=== PATIENT | male | born 1940 | race Caucasian/White ===

== ENCOUNTER → 2021-10-07 09:12 | Outpatient (CLI) | payer MEDICARE, SELFPAY ==
--- NOTE | ~2021-10-07 | CT_ITS ---
EXAMINATION: CT brain wo/w con DATE: 10/07/2021 09:50 INDICATION: Headache, dizziness. Memory impairment. History of stroke in 2013. TECHNIQUE: Computed tomography (CT) of the head was performed without and subsequently with 100 CC Om nipaque 350 intravenous contrast. The mA was adjusted according to patient size. Iterative reconstruc tion technique was employed. Exam dose: 1199.14 mGy-cm total exam DLP. COMPARISON: None FINDINGS: There is encephalomalacia in the right temporal and parietal area consistent with old cereb rovascular accident involving right middle cerebral artery territory.. There is a small old left cerebellar infarct. There is bilateral carotid siphon and supraclinoid internal carotid artery calcification.. There is n onspecific diminished attenuation of the cerebral white matter, likely due to chronic small vessel is chemic changes.. No intracranial mass lesion or hemorrhage, midline shift or mass effect. No subdural or epidural armaan renee is detected. There is central and cortical cerebral and mild cerebellar volume loss. The included paranasal sinuses and mastoid air cells are well aerated. No fracture or bone destruction of the cranial vault. 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 Reviewed, dictated and finalized at location A. BI DEVELOPER IMPRESSION: Old right middle cerebral artery territory infarcts and temporal a nd parietal areas Small old left cerebellar hemispheric infarct Cerebral atherosclerosis and chronic small vessel ischemic changes of the cereb ral white matter Cerebral and cerebellar atrophy
[2021-10-07 09:32] LABS: Estimated Glomerular Filt Rate > 60
== END ==
PROVIDERS: Visit Provider Internal Medicine
DX: R41.3 Other amnesia (principal); Z86.73 Personal history of transient ischemic attack (TIA), and cerebral infarction without residual deficits; I67.2 Cerebral atherosclerosis; G31.89 Other specified degenerative diseases of nervous system
CPT/HCPCS: 70470; Q9967

== ENCOUNTER 2023-06-13 16:45 | Inpatient (IN) | payer MEDICARE, SELFPAY ==
[2023-06-13] VITALS (35 sets, daily range): BP systolic 124–175; BP diastolic 88–99; PULSE 84–100; RESP 16–22; TEMP 36.4; O2SAT 90–100
--- NOTE | ~2023-06-13 | CT_ITS ---
EXAMINATION: CT brain wo con DATE: 06/15/2023 19:52 INDICATION: Head injury. TECHNIQUE: Computed tomography (CT) of the head was performed without intravenous contrast. The mA wa s adjusted according to patient size. Iterative reconstruction technique was employed. The dose-lengt h product was 832.33 mGy-cm. COMPARISON: Head CT 06/14/2023 FINDINGS: There is an old infarct in left frontal lobe. There is an old infarct in the left basal stephen glia. There is an old infarct involving right frontotemporal parietal region and right insula. There are scattered areas of low attenuation in the cerebral white matter. There is no intracranial hemorrh age, acute infarction, or abnormal intracranial mass lesion. The ventricles are normal in size. The o rbits are normal. The mastoid air cells are normal. There is frontal scalp soft tissue swelling. IMPRESSION: 1. Old infarcts in the brain. 2. Stable moderate nonspecific cerebral white matter disease, which likely represents chronic small v essel ischemic disease. Reviewed, dictated and finalized at location E. ER STAMPING MACHINE OPERATOR IMPRESSION: 1. Old infarcts in the brain. 2. Stable moderate nonspecific cerebral white matter disease, which likely repr esents chronic small vessel ischemic disease.
--- NOTE | ~2023-06-13 | XR_ITS ---
EXAMINATION: XR chest 2V Exam Date/Time: 06/13/2023 17:25 CENTER MANAGER HISTORY: Shortness of breath X 2 DAYS Comparison: None. RESULT: Lines, tubes, and devices: Fractured sternotomy wires, the most superior of which is also displaced. Lungs and pleura: Patchy bilateral groundglass opacities. Indistinct vessels. Streaky bibasilar opac ities. Mild bilateral costophrenic angle blunting. Cardiomediastinal silhouette: Stable. Other: No acute osseous or upper abdominal finding. IMPRESSION: Pulmonary opacities most consistent with moderate pulmonary edema and small bilateral effusions. Infe ction is not excluded. Fractured and displaced sternotomy wire which can be a source of chronic anterior chest pain. Reviewed, dictated and finalized at location [facility]. ER MANAGER IMPRESSION: Pulmonary opacities most consistent with moderate pulmonary edema and small tony ateral effusions. Infection is not excluded. Fractured and displaced sternotomy wire which can be a source of chronic anteri or chest pain.
--- NOTE | ~2023-06-13 | XR_ITS ---
MODIFIED ESOPHAGRAM HISTORY: Dysphagia. TECHNIQUE: Modified barium esophagram was performed on 06/16/2023. I administered fluoroscopy and per formed the exam with speech pathologist. Patient was seated for lateral fluoroscopic imaging for ing estion of thin liquids, pudding, solids and quantified amounts, followed by thin liquids in uncontrol led amounts. This was recorded on tape. A single fluoroscopic spot image was also recorded. The DAP f or this procedure was 2.372 Gycm2. The amount of fluoroscopy time used during this procedure was 3.3 minutes. FINDINGS: Oral stage: Reduced lingual control resulting in premature spillage into the pharynx prior to initiat ion of the swallow. Pharyngeal stage: Reduced laryngeal elevation and tongue base retraction. There is significant vallec ular and piriform sinus residue. There is laryngeal penetration and trace silent aspiration after the swallow. Cervical/esophageal stage: Adequate function. IMPRESSION: Laryngeal penetration and trace silent aspiration following the swallow. Please correlate with speech pathologist findings and specific feeding recommendations. Reviewed, dictated and finalized at location A. R FIELD SERVICE TECHNICIAN IMPRESSION: Laryngeal penetration and trace silent aspiration following the swa llow. Please correlate with speech pathologist findings and specific feeding re commendations.
--- NOTE | ~2023-06-13 | CT_ITS ---
EXAMINATION: CT facial & cervical spine wo DATE: 06/15/2023 19:53 INDICATION: Head injury. Neck pain. TECHNIQUE: Computed tomography (CT) of the maxillofacial region and cervical spine was performed with out intravenous contrast. Automated exposure control and iterative reconstruction technique were empl oyed. The dose-length product was 520.07 mGy-cm. COMPARISON: None FINDINGS: MAXILLOFACIAL CT: There is frontal scalp soft tissue swelling. The orbits are normal. There is rightward deviation of t he nasal septum. No fracture. The mastoid air cells are normal. CERVICAL SPINE CT: There are bilateral pleural effusions. The lungs demonstrate septal thickening and groundglass opacit ies, likely pulmonary edema. C1 ring is ununited posteriorly, a normal variant. There is 2 mm retroli sthesis of C4 on C5. There is 8 degrees levocurvature of cervical spine. Vertebral body heights are n ormal. There is mildly decreased disc height at C3-C4, severely decreased disc height at C4-C5 and C5 -C6, and mildly decreased disc height at C6-C7. The following disc levels are specifically discussed: C2-C3: There is mild right uncovertebral joint osteoarthritis. There is severe right and mild left fa cet joint osteoarthritis. There is mild right neural foraminal stenosis. There is no central canal st enosis. C3-C4: There is mild right uncovertebral joint osteoarthritis. There is ankylosis of left uncovertebr al joint with moderate hypertrophy. There is mild right facet joint osteoarthritis. There is ankylosi s of left facet joint with severe hypertrophy. There is moderate left neural foraminal stenosis. Ther e is mild central canal stenosis. C4-C5: There is severe bilateral uncovertebral joint osteoarthritis. There is severe bilateral facet joint osteoarthritis. There is moderate right and mild left neural foraminal stenosis. There is mild central canal stenosis. C5-C6: There is severe bilateral uncovertebral joint osteoarthritis. There is moderate bilateral face t joint osteoarthritis. There is mild bilateral neural foraminal stenosis. There is mild central rene l stenosis. C6-C7: There is mild bilateral uncovertebral joint osteoarthritis. There is mild bilateral facet join t osteoarthritis. There is mild left neural foraminal stenosis. There is mild central canal stenosis. C7-T1: There is no uncovertebral joint osteoarthritis. There is moderate right and mild left facet verónica int osteoarthritis. There is no neural foraminal stenosis. There is no central canal stenosis. IMPRESSION: 1. No fracture. 2. Severe cervical spondylosis. 3. Pulmonary edema and moderate-sized pleural effusions. Reviewed, dictated and finalized at location E. BLADE TRUER
--- NOTE | ~2023-06-13 | CT_ITS ---
EXAMINATION: CT brain wo con DATE: 06/14/2023 17:25 INDICATION: Facial weakness. TECHNIQUE: Computed tomography (CT) of the head was performed without intravenous contrast. The mA wa s adjusted according to patient size. Iterative reconstruction technique was employed. The dose-lengt h product was 605.33 mGy-cm. COMPARISON: Head CT 10/07/2021 FINDINGS: There are small old infarcts in the cerebellum bilaterally. There are scattered areas of lo w attenuation in the cerebral white matter. There is an old infarct in the left frontal lobe. There i s an old infarct in the left basal ganglia. There is a large old infarct involving the right frontal, parietal, and temporal lobes and right insula. There is an old infarct in the right temporal lobe. T here is no intracranial hemorrhage, acute infarction, or abnormal intracranial mass lesion. There is vacuo dilatation of trigone and temporal horn right lateral ventricle. There is mild mucosal thickeni ng in the paranasal sinuses. The orbits are normal. The mastoid air cells are normal. IMPRESSION: 1. Old infarcts in the brain. 2. Stable extensive nonspecific cerebral white matter disease, which likely represents chronic small vessel ischemic disease. Reviewed, dictated and finalized at location E. LAW EXAMINER IMPRESSION: 1. Old infarcts in the brain. 2. Stable extensive nonspecific cerebral white matter disease, which likely rep resents chronic small vessel ischemic disease.
--- NOTE | ~2023-06-13 | XR_ITS ---
EXAMINATION: XR ribs LT 2V INDICATION: Left chest pain TECHNIQUE: 3 views of the left ribs were obtained. COMPARISON: 06/14/2023 FINDINGS: There is a possible nondisplaced anterolateral fracture of the left seventh rib. There is a mild diffuse interstitial pattern of the lungs without significant change. Cardiomegaly is noted. Co ntrast from earlier modified barium swallow is seen in the stomach. No pleural effusion or pneumothor ax identified. Severe lumbar spondylosis is noted. IMPRESSION: 1. Possible nondisplaced anterolateral fracture of the left seventh rib. Reviewed, dictated and finalized at location B. CATION MANAGER
--- NOTE | ~2023-06-13 | XR_ITS ---
EXAMINATION: XR chest 1V portable INDICATION: Shortness of breath TECHNIQUE: Portable AP chest at 1347 hours COMPARISON: 06/13/2023 FINDINGS: A mild diffuse interstitial pattern persists without significant change. No pleural effusio ns, stable. There is no pneumothorax. Cardiomegaly is noted. Median sternotomy wires are consistent w ith prior cardiac surgery. Calcified left hilar and aortic pulmonary window lymph nodes are consisten t with old granulomatous disease. IMPRESSION: 1. Cardiomegaly with stable mild/moderate pulmonary edema. Reviewed, dictated and finalized at location B. KERING MACHINE OPERATOR
--- NOTE | ~2023-06-13 | XR_ITS ---
EXAMINATION: XR hip BI 2V w AP pelvis DATE: 06/15/2023 19:58 INDICATION: Bilateral hip pain. Fall. TECHNIQUE: An anteroposterior view of the pelvis and 2 views of each hip were obtained. COMPARISON: None. FINDINGS: There is lumbar levoscoliosis and severe spondylosis. No fracture. There is mild osteoarthr itis of the hips. IMPRESSION: 1. Mild osteoarthritis of the hips. Reviewed, dictated and finalized at location E. IC HEALTH SERVICE OFFICER
--- NOTE | 2023-06-13 16:46 | ECG_ITS ---
Measurements Intervals [place] Rate: 80 P: ID: 0 QRS: -24 QRSD: 178 T: 146 QT: 427 QTc: 496 Interpretive Statements ATRIAL FIBRILLATION LEFT BUNDLE BRANCH BLOCK BASELINE ARTIFACT- I, V1, V4 ABNORMAL ECG NO PREVIOUS ECG AVAILABLE FOR COMPARISON Electronically Signed On 06-13-2023 20:06:26 GEOTHERMAL HEAT PUMP MACHINIST by Matthieu Cunningham D.O.
--- NOTE | 2023-06-13 17:11 | PC.NURSE ---
Pts son received call from [facility] reporting pt has elevated BNP. RN spoke with nurse inquiring about EKG. [facility] unable to fax EKD, verbally reported new left bundle branch block compared to EKG on file at [facility] from 01/08/23. Dr. Walker informed
--- NOTE | 2023-06-13 17:13 | ED.SOB ---
HPI - SOB/Dyspnea General Chief Complaint: Shortness of Breath/Dyspnea Stated Complaint: Shortness of breath Time Seen by Provider: 06/13/23 17:13 Source: patient and old records reviewed Mode of arrival: ambulatory Limitations: no limitations History of Present Illness HPI Narrative: Patient is an 82-year-old male, with PMH of AFIB on Eliquis, CAD, who presents to the ED with report of shortness of breath. Son at bedside assisted in providing information. Patient has history of Alzheimer disease and is a resident of [facility]. Alert and oriented x1 at baseline. Son reports patient has been visibly short of breath over the last 1-2 days. He has become very winded with walking around. Son has also noticed a cough and mild BLE edema over the last 1 month. Patient does report occasional sputum production with cough. Patient denies chest pain. Denies known fevers. Patient is typically seen at [facility]. Son reports patient was treated for pneumonia 4 to 5 months ago. Patient was seen in [facility] ED today and had a EKG performed in triage. [facility] contacted ED here and advised LBBB is new from records in January of this year. Related Data Allergies Allergy/AdvReac Type Severity Reaction Status Date / Time codeine AdvReac Mild CONSTIPATIO Unverified 08/15/12 13:58 N Review of Systems Review of Systems: CONSTITUTIONAL: Denies fever, chills, or sweats. ENT: Denies rhinorrhea, congestion, sore throat. CARDIOVASCULAR: See HPI. RESPIRATORY: See HPI. GASTROINTESTINAL: Denies abdominal pain, nausea, vomiting. MUSCULOSKELETAL: Denies back pain, joint pain, or myalgia. NEUROLOGIC: Denies headache, numbness, or weakness. All systems reviewed & are unremarkable except as noted in HPI and below Exam Narrative: GENERAL: Elderly, somewhat frail, non-toxic, in no acute distress. HEAD: Normocephalic, atraumatic. NECK: Supple. No adenopathy, no masses. RESPIRATORY: Airway patent, respirations nonlabored but borderline tachypneic. Mild rhonchi noted in bases bilaterally. No wheezing. CARDIOVASCULAR: Regular rate with irregular rhythm without murmurs, rubs, or gallops. Peripheral pulses 2+ and equal bilaterally. ABDOMINAL: Soft, nontender, nondistended, no hepatosplenomegaly. Normoactive BS. MUSCULOSKELETAL: Moves all extremities. Strength/ROM intact without gross deformities. Trace nonpitting pedal edema to lower extremities bilaterally. SKIN: Warm, dry, normal color. No rashes. NEURO: Alert, answers most questions. Speech clear. Cranial nerves II-XII grossly intact. No ataxic movements. PSYCHIATRIC: Appropriate mood and affect. Normal interaction. Course Vital Signs Vital signs: Vital Signs Temperature 97.5 F L 06/13/23 16:48 Pulse Rate 93 06/13/23 16:48 Respiratory Rate 20 06/13/23 16:48 Blood Pressure 152/99 H 06/13/23 16:48 Pulse Oximetry 98 06/13/23 16:48 Oxygen Delivery Room Air 06/13/23 16:48 Temperature 97.5 F L 06/13/23 16:48 Pulse Rate 89 06/13/23 23:46 Respiratory Rate 19 06/13/23 23:45 Blood Pressure 156/94 H 06/13/23 23:31 Pulse Oximetry 94 06/13/23 23:46 Oxygen Delivery Room Air 06/13/23 16:48 MDM - SOB/Dyspnea MDM Narrative Medical decision making narrative: Patient presented to ED with 1 to 2-day history of increased shortness of breath. Patient with history of dementia though son reports shortness of breath has been noticeable over the last 2 days. Patient found to have new LBBB today via [facility]. EKG here confirms LBBB, nonspecific ST changes, A-fib. No records to compare to here. Patient does have history of A-fib, chronically anticoagulated on Eliquis. Denying CP at this time. Vitals stable upon arrival. Oxygen 92 to 98% on room air. Patient has not required oxygen in the past. Basic laboratory studies unremarkable. No leukocytosis. Stable kidney function. Influenza/COVID negative. Chest x-ray showing moderate pulmonary edema and small bilateral pleural eff
[2023-06-13 17:23] LABS: Basophils Absolute Auto 0.1 K/mm3 (0.0-0.1); Basophils Percent Auto 0.6 % (0.2-1.2); Eosinophils Absolute Auto 0.2 K/mm3 (0-0.3); Eosinophils Percent Auto 1.9 % (0-4.4); Hematocrit 37.2 % (42.0-52.0); Immature Granulocyte Absolute 0.02 K/mm3 (0.00-0.031); Immature Granulocyte Percent A 0.3 % (0-0.5); Lymphocytes Absolute Auto 1.74 K/mm3 (0.9-3.2); Lymphocytes Percent Auto 21.9 % (18.3-44.2); Mean Corpuscular HGB Conc 32.3 g/dl (32-36); Mean Corpuscular Hemoglobin 30.5 pg (26-34); Mean Corpuscular Volume 94.4 fl (80-100); Mean Platelet Volume 9.6 fl (7.4-10.4); Monocytes Absolute Auto 0.7 K/mm3 (0.1-0.6); Monocytes Percent Auto 9.1 % (2.6-8.5); Neutrophils Absolute Auto 5.3 K/mm3 (1.3-6.7); Neutrophils Percent Auto 66.2 % (45.5-73.1); Platelet Count Result 282 k/mm3 (150-375); Red Blood Count 3.94 M/mm3 (4.6-6.20); Red Cell Distribution Width 14.2 % (11.5-14.5); White Blood Count 7.9 K/mm3 (4.5-10.0)
[2023-06-13 17:27] LABS: Alanine Aminotransferase 17 U/L (6-50); Albumin Level 2.6 g/dL (3.5-5.1); Alkaline Phosphatase 66 U/L (38-126); Anion Gap 1 mmol/L (8-16); Aspartate Amino Transferase 28 U/L (17-59); Bilirubin,Total 0.7 mg/dL (0.2-1.3); Blood Urea Nitrogen 23 mg/dL (9-20); Calcium 7.6 mg/dL (8.4-10.2); Carbon Dioxide 27 mmol/L (22-30); Chloride 105 mmol/L (98-107); Estimated CRCL calculation 47 ml/min; Estimated Glomerular Filt Rate > 60; Glucose 131 mg/dL (65-110); Potassium 3.6 mmol/L (3.4-5.0); Sodium 133 mmol/L (137-145)
[2023-06-13 18:06] LABS: Influenza A QL RT-PCR Negative (Negative); Influenza B QL RT-PCR Negative (Negative); SARS-CoV-2 RNA PCR Negative (Negative)
[2023-06-13 19:33] LABS: NT Pro B Type Natriuretic Pept 9000 pg/mL (19.9-100); Troponin I 0.042 ng/mL (0.000-0.034)
[2023-06-13] MEDS: FUROSEMIDE INJ 40 MG/4 ML VIAL IV PUSH (19:46)
--- NOTE | 2023-06-13 19:53 | PM.IMHP ---
H&P: HPI History of Present Illness Date/Time: 06/13/23 19:53 Chief Complaint: SOB Narrative: This is an 82-year-old male with past medical history significant for Alzheimer's disease [facility], was brought to the emergency room for evaluation due to shortness of breath noted in the last few days or so which has been worsening. Patient also noted to have a wet cough, history has been obtained from son who is at bedside. Preliminary workup was significant for chest x-ray with infiltrates. A brain at appetite was 9000. Patient has been admitted for further evaluation management and treatment. EXAMINATION:? XR chest 2V Exam Date/Time:? 06/13/2023 17:25 MINE ENGINEERING MANAGER HISTORY: Shortness of breath X 2 DAYS ? Comparison:? None. RESULT: Lines, tubes, and devices:? Fractured sternotomy wires, the most superior of which is also displaced. Lungs and pleura:? Patchy bilateral groundglass opacities. Indistinct vessels. Streaky bibasilar opacities. Mild bilateral costophrenic angle blunting. Cardiomediastinal silhouette:? Stable. Other:? No acute osseous or upper abdominal finding. ? IMPRESSION: Pulmonary opacities most consistent with moderate pulmonary edema and small bilateral effusions. Infection is not excluded. Fractured and displaced sternotomy wire which can be a source of chronic anterior chest pain. Review of Systems Review of Systems: ROS unobtainable: Yes unobtainable due to mental status (ALZHEIMER'S DEMENTIA) [facility] Social History Social History Smoking status: Never smoker Spiritual care concerns: No Meds Home Medications and Allergies Home Medications Medication Instructions Recorded Confirmed Type apixaban 2.5 mg tablet (Eliquis) 2.5 mg PO BID 06/14/23 06/14/23 History atorvastatin 40 mg tablet 40 mg PO DAILY 06/14/23 06/14/23 History donepezil 5 mg tablet 5 mg PO DAILY 06/14/23 06/14/23 History metoprolol tartrate 25 mg tablet 25 mg PO DAILY 06/14/23 06/14/23 History Allergies Allergy/AdvReac Type Severity Reaction Status Date / Time codeine AdvReac Mild CONSTIPATIO Verified 06/14/23 02:04 N Vital Signs Vital Signs - 24 hr 06/13/23 16:48 Temperature 97.5 F L Pulse Rate 93 Respiratory Rate 20 Blood Pressure 152/99 H Pulse Oximetry 98 Oxygen Delivery Room Air Exam Narrative: LAYING IN STRETCHER Const: General: comfortable, no acute distress, well developed, alert, awake, ill appearing and average body habitus Nutritional Appearance: average body habitus Orientation/consciousness: oriented to person HENMT: Head: normal to inspection, normocephalic and atraumatic Ears: hearing grossly normal bilaterally Face/Nose/Sinus: normal facial exam Face and sinus: normal facial exam Eyes: General: appearance normal, both eyes and all related structures Pupils: Equal, round and reactive pupils present EOM: EOMs intact bilaterally Neck: Neck: full ROM, no lymphadenopathy and no JVD Thyroid: thyroid normal Lymphatic: no lymphadenopathy noted Resp: Effort & Inspection: normal respiratory effort and able to speak in complete sentences Auscultation: clear to auscultation bilaterally, crackles and rales Cardio: Jugular venous distension: no JVD Rate: regular rate Rhythm: regular rhythm Heart sounds: S1 normal heart sound present and S2 normal heart sound present GI: GI Palp: Yes Soft to palpation and Yes No hepatosplenomegaly present : General: Yes deferred Skin: Rashes: no rashes Wounds: no wounds Neuro: General: patient oriented x3 and CN's II-XI intact bilaterally Cranial nerves: Yes CN's II-XII intact bilaterally and Yes Equal, round and reactive pupils present Cognition (Neuro): normal cognition Speech: normal speech Gait exam (Neuro): Normal gait present Motor exam (neuro): 5/5 motor strength present throughout Extrem: General: normal to inspection,
[2023-06-13 20:31] LABS: Troponin I 0.042 ng/mL (0.000-0.034)
[2023-06-13] MEDS: LORazepam INJ (*CRX) 2 MG/ML VIAL 0.5 MG IV PUSH (23:22)
[2023-06-13 23:57] LABS: Troponin I 0.041 ng/mL (0.000-0.034)
[2023-06-14] VITALS (26 sets, daily range): BP systolic 135–170; BP diastolic 60–108; PULSE 76–105; RESP 16–20; TEMP 35.9–36.4; O2SAT 92–98; BMI 22.4
--- NOTE | 2023-06-14 00:55 | ADMGEN ---
0045 This patient, Danny Villela, was admitted to IMU Room 206-02. Patient/family oriented to hospital policies and general routines including ID bracelet, bed and alarms, visiting hours, pain management, procedures, bathroom and other care routines, personal items, smoking policy, room service/diet, and visiting hours. Information on how to activate the Rapid Response Team has been discussed. Patient/Family are encouraged to report perceived risks to care and to ask questions if they do not understand what they are told or what they should do.
[2023-06-14] MEDS: IPRATROPIUM BR 0.02% INH SOLN 0.5 MG/2.5 ML VIAL INHALATION ×5 (02:05→21:17)
[2023-06-14] MEDS: ALBUTEROL SULFATE NEB 2.5 MG/3 ML INH INHALATION ×5 (02:06→21:24)
[2023-06-14] MEDS: METOPROLOL TARTRATE 25 MG TABLET PO ×2 (02:20→12:43)
[2023-06-14] MEDS: HALOPERIDOL LACTATE 5 MG/ML VIAL IM (02:20)
[2023-06-14] MEDS: diphenhydrAMINE HCl INJ 50 MG/ML VIAL 25 MG IV PUSH ×2 (03:42→22:40)
[2023-06-14] MEDS: LORazepam INJ (*CRX) 2 MG/ML VIAL 1 MG IV PUSH (03:43)
[2023-06-14] MEDS: AZITHROMYCIN 500 MG/NS 250 ML 500 MG/250 ML BAG 250 MG IVPB (03:58)
[2023-06-14] MEDS: cefTRIAXone 2 GM/NS 100 ML 2 GM/100 ML BAG IVPB (04:50)
--- NOTE | 2023-06-14 05:35 | PCRCNOTE ---
Patient is exerting himself trying to get out of bed. updraft treatments are not helping much.
--- NOTE | 2023-06-14 06:00 | ECHO_ITS ---
Patient Info Name: Danny Villela Age: 82 years : 1940 Gender: Male Ht: 64 in Wt: 141 lbs BSA: 1.71 m2 HR: 94 bpm BP: 153 / 89 mmHg Heart Rhythm: Left Bundle Branch Block Technical Quality: Good Exam Date: 06/14/2023 2:14 PM Exam Location: Echo Lab Patient Status: Outpatient Admit Date: 06/13/2023 Staff Ordering Physician: Maura Vidal PA-C Roller Engraver: Nathalie Jessica RDCS Attending Provider: Nichole Ceja MD Referring Physician: Young CORDOVA; Exam Type: CA echo doppler color flow Study Info Indications - new onset CHF, elev BNP/trop Complete two-dimensional, color flow and Doppler transthoracic echocardiogram is performed. Summary 1. Complete two-dimensional, color flow and Doppler transthoracic echocardiogram is performed. 2. Left ventricular chamber dimension is normal. 3. Left ventricular systolic function is mildly reduced, estimated at 40-45%. 4. There is moderately increased left ventricular wall thickness. 5. Left ventricular septal wall motion is abnormal with septal motion related to bundle branch block. 6. Right ventricular systolic function is reduced. 7. Left atrial chamber dimension is moderately enlarged. 8. Right atrial chamber dimension is mildly enlarged. 9. There is moderate-severe aortic valve calcification. 10. There is moderate to severe aortic valve stenosis with a peak velocity of 261 cm/s, mean gradient of 17 mmHg, and aortic valve area of 0.8 cm2. 11. There is mild aortic valve regurgitation. 12. There is moderate mitral valve regurgitation. 13. There is mild tricuspid valve regurgitation. 14. There is mild pulmonic regurgitation. 15. Left pleural effusion noted. Left Ventricle Left ventricular chamber dimension is normal. Left ventricular systolic function is mildly reduced, estimated at 40-45%. There is moderately increased left ventricular wall thickness. Left ventricular septal wall motion is abnormal with septal motion related to bundle branch block. The left ventricular diastolic function is indeterminate. Right Ventricle Right ventricular chamber dimension is normal. Right ventricular systolic function is reduced. Left Atria Left atrial chamber dimension is moderately enlarged. Right Atria Right atrial chamber dimension is mildly enlarged. Atrial Septum Intact interatrial septum visualized by color flow imaging. Aortic Valve The aortic valve is probable trileaflet. There is moderate to severe aortic valve stenosis with a peak velocity of 261 cm/s, mean gradient of 17 mmHg, and aortic valve area of 0.8 cm2. There is mild aortic valve regurgitation. There is moderate-severe aortic valve calcification. Pulmonic Valve The pulmonic valve is not well visualized. There is mild pulmonic regurgitation. Mitral Valve There is moderate mitral valve regurgitation. The mitral valve annulus is mildly calcified. Tricuspid Valve There is mild tricuspid valve regurgitation. Pericardium/Pleural Left pleural effusion noted. There is no pericardial effusion. Inferior Vena Cava Normal inferior vena cava with <50% collapse upon inspiration consistent with elevated right atrial pressure, 8 mmHg. Aorta The aortic root size at the sinus of Valsalva is normal. Left Ventricular Outflow Tract Name Value Normal LVOT 2D LVOT Diameter
[2023-06-14 08:59] LABS: Basophils Percent Auto 0.4 % (0.2-1.2); Hematocrit 37.9 % (42.0-52.0); Immature Granulocyte Absolute 0.03 K/mm3 (0.00-0.031); Immature Granulocyte Percent A 0.4 % (0-0.5); Mean Corpuscular HGB Conc 31.7 g/dl (32-36); Mean Corpuscular Hemoglobin 30.2 pg (26-34); Mean Corpuscular Volume 95.5 fl (80-100); Mean Platelet Volume 9.9 fl (7.4-10.4); Monocytes Absolute Auto 0.5 K/mm3 (0.1-0.6); Monocytes Percent Auto 6.6 % (2.6-8.5); Neutrophils Absolute Auto 6.6 K/mm3 (1.3-6.7); Neutrophils Percent Auto 82.6 % (45.5-73.1); Platelet Count Result 280 k/mm3 (150-375); Red Blood Count 3.97 M/mm3 (4.6-6.20); Red Cell Distribution Width 14.3 % (11.5-14.5)
[2023-06-14 09:09] LABS: Albumin Level 2.4 g/dL (3.5-5.1); Anion Gap 4 mmol/L (8-16); Blood Urea Nitrogen 24 mg/dL (9-20); Calcium 7.7 mg/dL (8.4-10.2); Carbon Dioxide 23 mmol/L (22-30); Chloride 106 mmol/L (98-107); Estimated CRCL calculation 51 ml/min; Estimated Glomerular Filt Rate > 60; Glucose 100 mg/dL (65-110); Phosphorus 3.3 mg/dL (2.5-4.5); Potassium 3.6 mmol/L (3.4-5.0); Sodium 133 mmol/L (137-145)
[2023-06-14] MEDS: FUROSEMIDE INJ 40 MG/4 ML VIAL IV PUSH ×2 (09:23→20:57)
[2023-06-14 11:40] LABS: Alveolar/Arterial O2 Gradient 50.4 mmHg; Base Excess ABG 1.4 mEq/l (+/-2.0); Fractional Inspired Oxygen 21 %; HCO3 ABG 23.4 mEq/l (22.0-26.0); Oxygen Content ABG 16.9 %vol (16.0-22.0); Oxygen Saturation ABG 94.7 % (95.0-100.0); Oxyhemoglobin 92.5 % THb (90.0-100.0); PCO2 ABG 29.3 mmHg (35.0-45.0); PO2 ABG 64.2 mmHg (80.0-100.0); PO2 FiO2 Ratio Arterial Blood 3.06 %
[2023-06-14 11:42] LABS: Modified Allen's Test Pass; Site Drawn RIGHT RADIAL
[2023-06-14] MEDS: ATORVASTATIN 40 MG TABLET PO (12:43)
[2023-06-14] MEDS: APIXABAN 2.5 MG TABLET PO ×2 (12:44→20:57)
--- NOTE | 2023-06-14 13:53 | PM.IMPN ---
Progress Note: A&P Assessment and Plan (1) Congestive heart failure: Qualifiers: Heart failure chronicity: acute Heart failure type: unspecified Qualified Code(s): I50.9 - Heart failure, unspecified Code(s): I50.9 - Heart failure, unspecified Status: Acute Assessment and Plan: Patient presents with SOB and found to have BNP of 9000 and CXR pulmonary edema. He was started on IV Lasix with negative fluid balance. Family state the pedal edema is much better. Echo pending but could be valvular disease CXR still showing pulmonary edema so continue IV Lasix. Monitor UOP, renal function and electrolytes. (2) Pneumonia: Code(s): J18.9 - Pneumonia, unspecified organism Status: Acute Assessment and Plan: Possible PNA by CXR. Patient was started on Rocephin and Zithromax ST to evaluate. ABG showing 7. on RA. Probably hyperventilating but RR okay. Doubt PE since on anticoagulation Cultures in progress (3) Elevated troponin: Code(s): R79.89 - Other specified abnormal findings of blood chemistry Status: Acute Assessment and Plan: Troponins x3 is minimally elevated but flat. Echo ordered Continue to monitor (4) LBBB (left bundle branch block): Code(s): I44.7 - Left bundle-branch block, unspecified Status: Acute Assessment and Plan: Noted but unclear if new or old. (5) Dementia: Code(s): F03.90 - Unspecified dementia, unspecified severity, without behavioral disturbance, psychotic disturbance, mood disturbance, and anxiety Status: Acute Assessment and Plan: Patient with dementia. Aricept contnued. Confused last night treated with Haldol, Benadry and Ativan. Very sleepy today but improved. Will follow (6) Atrial fibrillation: Code(s): I48.91 - Unspecified atrial fibrillation Status: Acute Assessment and Plan: Patient with chronic AFib with controlled rate. Continue Lopressor. Continue Eliquis. Plan DVT Prophylaxis - Eliquis Code status - Full Subjective Date/time seen: 06/14/23 13:53 Interval history: 82yo male with dementia, AFib and CHF here for shortness of breath. Assuming care. Chart reviewed. Patient was agitated last night and received Bendryl, Haldol and Ativan overnight. Patient is awake, slightly drowsy but confused so hx unreliable. Family in the room and they were updated. Patient normally walks unassisted Review of Systems Review of Systems: ROS unobtainable: Yes unobtainable due to mental status Exam Narrative: AF 96.8 170/108 85 18 98% ra Gen - NARD lying semi-recumbent in bed Chest - few bibasilar crackles, nml RR CV - irregularly irregular with 2/6 murmur t/o the recordium Tele showing AFib and BBB Abd - Soft, NT/ND, Positive BS - Friend secured draining clear yellow urine Ext - trace pedal edema Neuro - drowsy but awake; confused. follows commands Psych - Nml mood and affect Skin - Warm and dry Objective Data Vital Signs Vital Signs: Vital Signs - 24 hr 06/13/23 16:48 06/13/23 19:04 06/13/23 19:15 Temperature 97.5 F L Pulse Rate 93 84 85 Respiratory Rate 20 16 Blood Pressure 152/99 H Pulse Oximetry 98 97 100 Oxygen Delivery Room Air 06/13/23 19:16 06/13/23 19:30 06/13/23 19:37 Temperature Pulse Rate 85 98 85 Respiratory Rate 17 Blood Pressure 165/98 H 124/88 Pulse Oximetry 99 98 98 Oxygen Delivery 06/13/23 19:45 06/13/23 19:46 06/13/23 20:00 Temperature Pulse Rate 88 88 84 Respiratory Rate 19 Blood Pressure Pulse Oximetry 97 97 94 Oxygen Delivery 06/13/23 20:01 06/13/23 20:15 06/13/23 20:17 Temperature Pulse Rate 89 86 87 Respiratory Rate Blood Pressure 175/94 H Pulse Oximetry 99 92 97 Oxygen Delivery 06/13/23 20:18 06/13/23 20:30 06/13/23 20:32 Temperature Pulse Rate 88 95 Respiratory Rate 21 H 20 Blood Pressure 173/91 H P
--- NOTE | 2023-06-14 16:18 | PC.NURSE ---
On 06/14/23, the student, Orlando VALADEZ [facility], provided care and completed [facility] documentation on this patient. I have reviewed the student's documentation and agree with the findings.
--- NOTE | 2023-06-14 16:21 | PC.NURSE ---
Pt is c/o SOB with wheezing SPO2 is 96% on RA son is at bed side and reported that pt has rt side facial dropping noted that is new for him upon assessment rt side of face had a slight drop, pt reporter anchor are weak and equal, BL pedal pulses are strong and equal this nurse notified Dr Art of this concern and he will place orders for CT and PRN nub tx.
[2023-06-14] MEDS: ALBUTEROL SULFATE NEB 2.5 MG/3 ML INH 1.25 MG INHALATION (16:35)
[2023-06-14] MEDS: ALBUTEROL SULFATE NEB 2.5 MG/3 ML INH (16:52)
[2023-06-14] MEDS: OLANZapine 10 MG INJ VIAL IM (22:40)
[2023-06-14] MEDS: WATER, STERILE FOR INJECTION 10 ML VIAL XX (22:41)
[2023-06-15] VITALS (25 sets, daily range): BP systolic 122–185; BP diastolic 66–97; PULSE 60–109; RESP 16–20; TEMP 35.3–36.6; O2SAT 91–98
[2023-06-15] MEDS: LORazepam INJ (*CRX) 2 MG/ML VIAL 1 MG IV PUSH (01:07)
[2023-06-15] MEDS: cefTRIAXone 2 GM/NS 100 ML 2 GM/100 ML BAG IVPB (04:25)
[2023-06-15] MEDS: AZITHROMYCIN 500 MG/NS 250 ML 500 MG/250 ML BAG 250 MG IVPB (04:25)
[2023-06-15 04:44] LABS: Basophils Percent Auto 0.4 % (0.2-1.2); Eosinophils Absolute Auto 0.1 K/mm3 (0-0.3); Eosinophils Percent Auto 1.3 % (0-4.4); Hematocrit 35.4 % (42.0-52.0); Hemoglobin 11.5 g/dL (14.0-18.0); Immature Granulocyte Absolute 0.03 K/mm3 (0.00-0.031); Immature Granulocyte Percent A 0.4 % (0-0.5); Lymphocytes Absolute Auto 1.33 K/mm3 (0.9-3.2); Lymphocytes Percent Auto 16.2 % (18.3-44.2); Mean Corpuscular HGB Conc 32.5 g/dl (32-36); Mean Corpuscular Hemoglobin 30.3 pg (26-34); Mean Corpuscular Volume 93.4 fl (80-100); Mean Platelet Volume 9.7 fl (7.4-10.4); Monocytes Absolute Auto 0.8 K/mm3 (0.1-0.6); Monocytes Percent Auto 10.1 % (2.6-8.5); Neutrophils Absolute Auto 5.9 K/mm3 (1.3-6.7); Neutrophils Percent Auto 71.6 % (45.5-73.1); Platelet Count Result 257 k/mm3 (150-375); Red Blood Count 3.79 M/mm3 (4.6-6.20); Red Cell Distribution Width 14.2 % (11.5-14.5); White Blood Count 8.2 K/mm3 (4.5-10.0)
[2023-06-15 04:59] LABS: Albumin Level 2.6 g/dL (3.5-5.1); Anion Gap 7 mmol/L (8-16); Blood Urea Nitrogen 21 mg/dL (9-20); Calcium 7.3 mg/dL (8.4-10.2); Carbon Dioxide 27 mmol/L (22-30); Chloride 102 mmol/L (98-107); Estimated CRCL calculation 44 ml/min; Estimated Glomerular Filt Rate > 60; Glucose 90 mg/dL (65-110); Magnesium 2.2 mg/dL (1.6-2.3); Phosphorus 3.2 mg/dL (2.5-4.5); Sodium 136 mmol/L (137-145)
[2023-06-15] MEDS: ALBUTEROL SULFATE NEB 2.5 MG/3 ML INH INHALATION ×3 (08:30→21:03)
[2023-06-15] MEDS: IPRATROPIUM BR 0.02% INH SOLN 0.5 MG/2.5 ML VIAL INHALATION ×3 (08:30→21:04)
--- NOTE | 2023-06-15 10:13 | PCSTNOTE ---
ISABELLE Cantor, at 8:15 am reported that patient was asleep, had been up all night. She will contact this therapist when patient is awake and able to participate in Bedside Swallow Evaluation.
[2023-06-15] MEDS: FUROSEMIDE INJ 40 MG/4 ML VIAL IV PUSH (10:34)
--- NOTE | 2023-06-15 13:07 | PM.IMPN ---
Progress Note: A&P Assessment and Plan (1) Congestive heart failure: Qualifiers: Heart failure chronicity: acute Heart failure type: unspecified Qualified Code(s): I50.9 - Heart failure, unspecified Code(s): I50.9 - Heart failure, unspecified Status: Acute Assessment and Plan: Patient presents with SOB and found to have BNP of 9000 and CXR pulmonary edema. He was started on IV Lasix with negative fluid balance. Pedal edema has resolved Echo pending Monitor UOP, renal function and electrolytes. Change to oral Lasix. (2) Pneumonia: Code(s): J18.9 - Pneumonia, unspecified organism Status: Acute Assessment and Plan: Possible PNA by CXR. Patient was started on Rocephin and Zithromax ST to evaluate but unable to assess. ABG showing 7.52/29/64 on RA. Probably hyperventilating but RR okay. He does Kussmaul's type breathing pattern that is associated with the audible wheezing. Doubt PE since on anticoagulation Audible wheezing but more upper airway related. Could be related to upper airway narrowing or viral illness. [employer] state that neb treatments not helpful to wheezing. Patient is a nonsmoker and no hx of asthma. Suspect wheezing related pulm edema initially and possibly from upper airway narrowing. Will monitor for now and see how he does when he is more awake and alert. BCx NGTD. Hold on steroids. (3) Elevated troponin: Code(s): R79.89 - Other specified abnormal findings of blood chemistry Status: Acute Assessment and Plan: Troponins x3 is minimally elevated but flat. Echo ordered Continue to monitor (4) LBBB (left bundle branch block): Code(s): I44.7 - Left bundle-branch block, unspecified Status: Acute Assessment and Plan: Noted but unclear if new or old. (5) Dementia: Code(s): F03.90 - Unspecified dementia, unspecified severity, without behavioral disturbance, psychotic disturbance, mood disturbance, and anxiety Status: Acute Assessment and Plan: Patient with dementia. Aricept contnued. Confused again last night treated with Zyprexa, Benadry and Ativan. Very somnolent. Will follow Add Trazodone tonight. (6) Atrial fibrillation: Code(s): I48.91 - Unspecified atrial fibrillation Status: Acute Assessment and Plan: Patient with chronic AFib with controlled rate. Continue Lopressor. Continue Eliquis. Plan DVT Prophylaxis - Eliquis Code status - Full Subjective Date/time seen: 06/15/23 13:07 Interval history: 82yo male with dementia, AFib and CHF here for shortness of breath. Patient again agitated at night and was given Zyprexa, Ativan and Benadryl. He has audible expiratory wheezes that staff and family are concerned about. Patient arouses but very somnolent now. Review of Systems Review of Systems: ROS unobtainable: Yes unobtainable due to mental status Exam Narrative: AF 97.6 151/90 102 20 93% ra Gen - NARD lying semi-recumbent in bed Chest - audible expiratory wheeze at times. faint end-expiratory wheezes anteriorly and mild basilar crackles in the flanks CV - irregularly irregular with 2/6 murmur t/o the precordium Tele showing AFib with controlled rate Abd - Soft, NT/ND, Positive BS Ext - no pedal edema Neuro - somnolent but arouses Psych - unable to assess Skin - Warm and dry Objective Data Vital Signs Vital Signs: Vital Signs - 24 hr 06/14/23 13:10 06/14/23 14:00 06/14/23 16:00 Temperature 96.7 F L Pulse Rate 85 86 88 Respiratory Rate 18 18 Blood Pressure 149/94 H Pulse Oximetry 97 Oxygen Delivery 06/14/23 16:35 06/14/23 16:00 06/14/23 16:35 Temperature 96.8 F L Pulse Rate 96 82 Respiratory Rate 18 18 Blood Pressure 149/94 H Pulse Oximetry 94 Oxygen Delivery Room Air 06/14/23 16:45 06/14/23 16:00 06/14/23 18:00 Temperature Pulse Rate 84 96 86 Respiratory Rate 18
[2023-06-15] MEDS: METOPROLOL TARTRATE 25 MG TABLET PO (13:35)
[2023-06-15] MEDS: APIXABAN 2.5 MG TABLET PO (13:35)
[2023-06-15] MEDS: ATORVASTATIN 40 MG TABLET PO (13:35)
[2023-06-15] MEDS: DONEPEZIL HCL 5 MG TABLET PO (13:35)
[2023-06-15] MEDS: POTASSIUM CHLORIDE 20 MEQ PACKET (FOR LIQUID) 40 MEQ PO (13:36)
--- NOTE | 2023-06-15 15:03 | PCSTNOTE ---
Please refer to the Bedside Swallow Evaluation in the EMR. Please note, silent aspiration cannot be ruled out at bedside.
--- NOTE | 2023-06-15 20:20 | PC.NURSE ---
Notified son Danny of patient fall this evening and that imaging was done and shows no evidence of brain bleed or fracture. Also, that patient sitter has been ordered per MD and eliquis has been placed on hold.
[2023-06-15] MEDS: traZODone HCL 25 MG TABLET PO (21:43)
[2023-06-16] VITALS (25 sets, daily range): BP systolic 120–177; BP diastolic 69–105; PULSE 83–100; RESP 18–28; TEMP 35.6–36.4; O2SAT 91–98
[2023-06-16] MEDS: ACETAMINOPHEN 500 MG TABLET 1000 MG PO ×2 (00:28→10:09)
[2023-06-16] MEDS: AZITHROMYCIN 500 MG/NS 250 ML 500 MG/250 ML BAG 250 MG IVPB (02:22)
[2023-06-16] MEDS: cefTRIAXone 2 GM/NS 100 ML 2 GM/100 ML BAG IVPB (02:22)
--- NOTE | 2023-06-16 04:26 | PCRCNOTE ---
RN asked that RT not wake patient as he had not slept in quite awhile. RT told RN if patient wakes up to call. RT will administer treatment.
[2023-06-16 05:19] LABS: Anion Gap 6 mmol/L (8-16); Blood Urea Nitrogen 21 mg/dL (9-20); Carbon Dioxide 26 mmol/L (22-30); Chloride 105 mmol/L (98-107); Estimated CRCL calculation 54 ml/min; Estimated Glomerular Filt Rate > 60; Glucose 97 mg/dL (65-110); Potassium 3.7 mmol/L (3.4-5.0); Sodium 137 mmol/L (137-145)
--- NOTE | 2023-06-16 08:20 | PCPTNOTE ---
Waiting for hospitalist approval prior to PT evaluation. Will follow.
[2023-06-16] MEDS: ALBUTEROL SULFATE NEB 2.5 MG/3 ML INH INHALATION ×3 (08:26→20:33)
[2023-06-16] MEDS: IPRATROPIUM BR 0.02% INH SOLN 0.5 MG/2.5 ML VIAL INHALATION ×3 (08:26→20:33)
[2023-06-16] MEDS: FUROSEMIDE 40 MG TABLET PO (10:08)
[2023-06-16] MEDS: DONEPEZIL HCL 5 MG TABLET PO (10:08)
[2023-06-16] MEDS: METOPROLOL TARTRATE 25 MG TABLET PO (10:08)
[2023-06-16] MEDS: ATORVASTATIN 40 MG TABLET PO (10:08)
--- NOTE | 2023-06-16 13:51 | PM.IMPN ---
Progress Note: A&P Assessment and Plan (1) Fall: Code(s): W19.XXXA - Unspecified fall, initial encounter Status: Acute Assessment and Plan: Called to the room by nurse on 06/15 in the evening. Patient had fallen out of bed and sustained a head injury. Patient was alert but confused which is his baseline. Vital signs stable. He was noted to have a pulsatile mass right popliteal fossa. 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 CT C-spine and facial CT showing no fracture but severe cervical spondylosis. He also had pulmonary edema and moderate sized pleural effusions. XR pelvic and hips negative for fracture. US ordered for the possible aneurysm Sitter ordered. Eliquis held. (2) Congestive heart failure: Qualifiers: Heart failure chronicity: acute Heart failure type: unspecified Qualified Code(s): I50.9 - Heart failure, unspecified Code(s): I50.9 - Heart failure, unspecified Status: Acute Assessment and Plan: Patient presents with SOB and found to have BNP of 9000 and CXR pulmonary edema. He was started on IV Lasix with negative fluid balance. Pedal edema has resolved Echo showing EF 40-45%, septal wall motion abnormalities related to BBB, reduced RV systolic function, biatrial enlargement, moderate to severe (MEENU 0.8cm2) and moderate MR. Remains on room air. Continue metoprolol but change to Toprol XL. Add losartan and Empagliflozin Monitor UOP, renal function and electrolytes. Continue oral Lasix. (3) Pneumonia: Code(s): J18.9 - Pneumonia, unspecified organism Status: Acute Assessment and Plan: Possible PNA by CXR. Patient was started on Rocephin and Zithromax ST to evaluate and MBS [id number] ABG showing 7.52/29/64 on RA. Probably hyperventilating but RR okay. He does Kussmaul's type breathing pattern that is associated with the audible wheezing. Audible wheezing but more upper airway related possibly from secretions. Doubt PE since on anticoagulation Patient is a nonsmoker and no hx of asthma. Suspect wheezing related pulm edema initially and possibly from upper airway secretions. BCx NGTD. Follow (4) Elevated troponin: Code(s): R79.89 - Other specified abnormal findings of blood chemistry Status: Acute Assessment and Plan: Troponins x3 is minimally elevated but flat. [place] related to CHF and not acute coronary disease. Echo as above. Plan for medical management Continue to monitor (5) Atrial fibrillation: Code(s): I48.91 - Unspecified atrial fibrillation Status: Acute Assessment and Plan: Patient with chronic AFib with controlled rate. Continue Lopressor. Eliquis on hold but resume in 1-2 days if remains neurologically intact (6) LBBB (left bundle branch block): Code(s): I44.7 - Left bundle-branch block, unspecified Status: Acute Assessment and Plan: Noted but unclear if new or old. (7) Dementia: Code(s): F03.90 - Unspecified dementia, unspecified severity, without behavioral disturbance, psychotic disturbance, mood disturbance, and anxiety Status: Acute Assessment and Plan: Patient with dementia. Aricept continued. he was having confusion at night being treated with anti-psychotics, benzos. Trazodone added and had better night. Continue the same. Plan DVT Prophylaxis - Eliquis on hold. SCDs Code status - Full Subjective Date/time seen: 06/16/23 13:51 Interval history: 82yo male with dementia, AFib and CHF here for shortness of breath. Patient did well overnight. He is awake but confused. he has been complaining of left rib pain Exam Narrative: AF 97.2 130/87 89 19 97% ra Gen - NARD HEENT - right facial bruising noted Chest - occasional audible expiratory wheeze at times. mild bibasilar crackles. Left chest pain CV - irregularly irregular. Tele showing wide complex irregular tachycardia with HR around 10
--- NOTE | 2023-06-16 14:37 | PCSTNOTE ---
Please refer to the Modified Barium Swallow Evaluation in the EMR.
[2023-06-16] MEDS: KCL 20 MEQ/D5/0.9% SOD CHL 1,000 ML 70 ML IV CONT (21:44)
[2023-06-16] MEDS: AMPICILLIN SULB 3 GM/NS 100 ML 3 GM/100 ML VIAL IVPB (21:51)
[2023-06-17] VITALS (24 sets, daily range): BP systolic 137–160; BP diastolic 52–91; PULSE 85–106; RESP 18–24; TEMP 36.4–36.8; O2SAT 86–100
[2023-06-17] MEDS: MORPHINE SULFATE (*CRX) 2 MG/ML INJ 1 MG IV PUSH ×2 (01:07→16:51)
[2023-06-17] MEDS: IPRATROPIUM BR 0.02% INH SOLN 0.5 MG/2.5 ML VIAL INHALATION ×4 (01:47→21:08)
[2023-06-17] MEDS: ALBUTEROL SULFATE NEB 2.5 MG/3 ML INH INHALATION ×4 (01:47→21:08)
[2023-06-17] MEDS: AMPICILLIN SULB 3 GM/NS 100 ML 3 GM/100 ML VIAL IVPB ×4 (03:04→21:56)
[2023-06-17 04:31] LABS: Basophils Percent Auto 0.4 % (0.2-1.2); Eosinophils Absolute Auto 0.1 K/mm3 (0-0.3); Eosinophils Percent Auto 0.8 % (0-4.4); Hematocrit 37.2 % (42.0-52.0); Hemoglobin 11.8 g/dL (14.0-18.0); Immature Granulocyte Absolute 0.03 K/mm3 (0.00-0.031); Immature Granulocyte Percent A 0.3 % (0-0.5); Lymphocytes Absolute Auto 0.67 K/mm3 (0.9-3.2); Lymphocytes Percent Auto 7.5 % (18.3-44.2); Mean Corpuscular HGB Conc 31.7 g/dl (32-36); Mean Corpuscular Hemoglobin 30.4 pg (26-34); Mean Corpuscular Volume 95.9 fl (80-100); Mean Platelet Volume 9.5 fl (7.4-10.4); Monocytes Absolute Auto 0.7 K/mm3 (0.1-0.6); Monocytes Percent Auto 8.1 % (2.6-8.5); Neutrophils Absolute Auto 7.4 K/mm3 (1.3-6.7); Neutrophils Percent Auto 82.9 % (45.5-73.1); Platelet Count Result 260 k/mm3 (150-375); Red Blood Count 3.88 M/mm3 (4.6-6.20); Red Cell Distribution Width 14.4 % (11.5-14.5); White Blood Count 8.9 K/mm3 (4.5-10.0)
[2023-06-17 04:46] LABS: Albumin Level 2.5 g/dL (3.5-5.1); Anion Gap 5 mmol/L (8-16); Blood Urea Nitrogen 16 mg/dL (9-20); Calcium 7.2 mg/dL (8.4-10.2); Carbon Dioxide 26 mmol/L (22-30); Chloride 107 mmol/L (98-107); Estimated CRCL calculation 46 ml/min; Estimated Glomerular Filt Rate > 60; Glucose 105 mg/dL (65-110); Magnesium 2.3 mg/dL (1.6-2.3); Phosphorus 2.5 mg/dL (2.5-4.5); Potassium 3.7 mmol/L (3.4-5.0); Sodium 138 mmol/L (137-145)
--- NOTE | 2023-06-17 09:59 | PM.IMPN ---
Progress Note: A&P Assessment and Plan (1) Dysphagia: Code(s): R13.10 - Dysphagia, unspecified Status: Acute Assessment and Plan: Modified barium swallow shows that material enters the airway below the vocal cords without effort to eject.?Has a very sluggish swallow reflex with reduced laryngeal elevation.? Patient made NPO.? Started low-dose maintenance fluids. Oral medications held. Changed abx to Unasyn. Discussed with family about feeding tube vs hospice/comfort care last night. He spoke with his family and they have decided not to proceed with GTube. Family state that in the past, the patient himself wished not to be kept alive with tubes. All questions answered. Speech therapy to help determine diet to minimize aspiration risk. Family aware that the patient's condition probably will worsen and hospice recommended. They voice understanding of this; they are agreeable for hospice consult Hospice consult (2) Fall: Code(s): W19.XXXA - Unspecified fall, initial encounter Status: Acute Assessment and Plan: Called to the room by nurse on 06/15 in the evening. Patient had fallen out of bed and sustained a head injury. Patient was alert but confused which is his baseline. Vital signs stable. He was noted to have a pulsatile mass right popliteal fossa. 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 CT C-spine and facial CT showing no fracture but severe cervical spondylosis. He also had pulmonary edema and moderate sized pleural effusions. XR pelvic and hips negative for fracture. US ordered for the possible aneurysm Sitter ordered. Eliquis held. Rib xray 06/16 given patient's complaints showing possibly nondisplaced anterolateral fracture left 7th rib Continue to monitor. (3) Congestive heart failure: Qualifiers: Heart failure chronicity: acute Heart failure type: unspecified Qualified Code(s): I50.9 - Heart failure, unspecified Code(s): I50.9 - Heart failure, unspecified Status: Acute Assessment and Plan: Patient presents with SOB and found to have BNP of 9000 and CXR pulmonary edema. He was started on IV Lasix with negative fluid balance. Pedal edema has resolved Echo showing EF 40-45%, septal wall motion abnormalities related to BBB, reduced RV systolic function, biatrial enlargement, moderate to severe (MEENU 0.8cm2) and moderate MR. Mediations adjusted given NPO status. (4) Pneumonia: Code(s): J18.9 - Pneumonia, unspecified organism Status: Acute Assessment and Plan: Possible PNA by CXR. Patient was started on Rocephin and Zithromax ST to evaluate and MBS recommended - see above ABG showing 7. on RA. Probably hyperventilating but RR okay. He does Kussmaul's type breathing pattern that is associated with the audible wheezing. Audible wheezing but more upper airway related possibly from secretions. Doubt PE since on anticoagulation Patient is a nonsmoker and no hx of asthma. BCx NGTD. Abx adjusted to Unasyn given his aspiration risk Follow (5) Elevated troponin: Code(s): R79.89 - Other specified abnormal findings of blood chemistry Status: Acute Assessment and Plan: Troponins x3 is minimally elevated but flat. [place] related to CHF and not acute coronary disease. Echo as above. Plan for medical management Continue to monitor (6) Atrial fibrillation: Code(s): I48.91 - Unspecified atrial fibrillation Status: Acute Assessment and Plan: Patient with chronic AFib with controlled rate. Eliquis on hold due to fall (7) LBBB (left bundle branch block): Code(s): I44.7 - Left bundle-branch block, unspecified Status: Acute Assessment and Plan: Noted but unclear if new or old. (8) Dementia: Code(s): F03.90 - Unspecified dementia, unspecified severity, without behavioral disturbance, psychotic disturbance, mood disturbance, and anxiety Status: Acu
--- NOTE | 2023-06-17 12:58 | PCSTNOTE ---
Patient is being evaluated by hospice today at [address] Art has requested recommendations for the least restrictive diet modifications for this patient to minimize the risk of aspiration if patient does not remain NPO. In order to determine this a detailed review of previous speech therapy evaluations (bedside and MBSS) was completed. Patient currently is NPO based on aspiration detected during MBSS. Therapy has been recommended with emphasis on strengthening tongue base, increasing laryngeal elevation, and increasing laryngeal adduction. Due to patient's cognitive abilities (dementia) he is not likely to remember and carryout a therapy exercise program, nor is he likely to show significant progress toward therapy goals. Patient and family were interviewed and nurse was present to discuss hospice and subsequent treatment plans. They all agreed that patient would prefer to continue to receive a diet for comfort and pleasure. A list of food preferences was developed with family including: mashed potatoes, mashed sweet potatoes, turkey, macaroni and cheese, vanilla ice cream, beer, iced tea (alone or mixed with Pepsi). No food dislikes or aversions were named by family or patient. If patient begins oral feeding it is recommended that these safety precautions be followed to minimize the risk of aspiration: 1. Always position upright in bed or sitting upright in chair when eating or drinking. 2. Allow patient to have food preferences. 3. Do not encourage patient to eat slowly, as MBSS findings showed that he is actually at higher risk of aspiration when eating slowly. 4. Give flavored beverages instead of water as flavored liquids provide extra sensory stimulation which hypothetically gives the patient a higher level of control over the bolus. 5. Avoid foods that are difficult to chew and swallow, such as chewy candies, nuts, hard pieces of raw fruit or vegetables, hard pizza crust, and similar items. 6. Do not encourage patient to eat or drink more than he chooses to.
[2023-06-17] MEDS: KCL 20 MEQ/D5/0.9% SOD CHL 1,000 ML 70 ML IV CONT (14:01)
[2023-06-18] VITALS (21 sets, daily range): BP systolic 147–155; BP diastolic 84–100; PULSE 89–111; RESP 16–24; TEMP 36.4–36.6; O2SAT 90–99
[2023-06-18] MEDS: IPRATROPIUM BR 0.02% INH SOLN 0.5 MG/2.5 ML VIAL INHALATION ×4 (03:11→20:35)
[2023-06-18] MEDS: ALBUTEROL SULFATE NEB 2.5 MG/3 ML INH INHALATION ×4 (03:11→20:35)
[2023-06-18] MEDS: AMPICILLIN SULB 3 GM/NS 100 ML 3 GM/100 ML VIAL IVPB (03:15)
[2023-06-18] MEDS: KCL 20 MEQ/D5/0.9% SOD CHL 1,000 ML 70 ML IV CONT (06:54)
[2023-06-18] MEDS: AMOXICILLIN/CLAVULANATE K 875-125 MG TAB 1 TABLET PO (10:10)
[2023-06-18] MEDS: DONEPEZIL HCL 5 MG TABLET PO (10:10)
[2023-06-18] MEDS: MORPHINE SULFATE (*CRX) 2 MG/ML INJ 1 MG IV PUSH (10:14)
--- NOTE | 2023-06-18 13:00 | PM.IMPN ---
Progress Note: A&P Assessment and Plan (1) Dysphagia: Code(s): R13.10 - Dysphagia, unspecified Status: Acute Assessment and Plan: Modified barium swallow shows that material enters the airway below the vocal cords without effort to eject.?Has a very sluggish swallow reflex with reduced laryngeal elevation.? Patient made NPO.? Started low-dose maintenance fluids. Oral medications held. Changed abx to Unasyn. Discussed with family about feeding tube vs hospice/comfort care last night. He spoke with his family and they have decided not to proceed with GTube. Family state that in the past, the patient himself wished not to be kept alive with tubes. All questions answered. Speech therapy provided a diet to minimize aspiration risk. Family was aware that the patient's condition probably will worsen and hospice recommended. They voice understanding of this and have decided to move to hospice care. Okay to discharge back to his facility but facility unable to assess today and refuses to take him back until they do so. Discharge on hospice care hopefully at his facility when the facility staff can arrange to come out and see patient Family agreeable to change to DNR status. (2) Fall: Code(s): W19.XXXA - Unspecified fall, initial encounter Status: Acute Assessment and Plan: Called to the room by nurse on 06/15 in the evening. Patient had fallen out of bed and sustained a head injury. Patient was alert but confused which is his baseline. Vital signs stable. He was noted to have a pulsatile mass right popliteal fossa. 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 CT C-spine and facial CT showing no fracture but severe cervical spondylosis. He also had pulmonary edema and moderate sized pleural effusions. XR pelvic and hips negative for fracture. US ordered for the possible aneurysm Sitter ordered. Eliquis remains on hold. Rib xray 06/16 given patient's complaints showing possibly nondisplaced anterolateral fracture left 7th rib Continue to monitor. (3) Congestive heart failure: Qualifiers: Heart failure chronicity: acute Heart failure type: unspecified Qualified Code(s): I50.9 - Heart failure, unspecified Code(s): I50.9 - Heart failure, unspecified Status: Acute Assessment and Plan: Patient presents with SOB and found to have BNP of 9000 and CXR pulmonary edema. He was started on IV Lasix with negative fluid balance. Pedal edema has resolved Echo showing EF 40-45%, septal wall motion abnormalities related to BBB, reduced RV systolic function, biatrial enlargement, moderate to severe (MEENU 0.8cm2) and moderate MR. No plans to adjust meds since home on hospice care (4) Pneumonia: Code(s): J18.9 - Pneumonia, unspecified organism Status: Acute Assessment and Plan: Possible PNA by CXR. Patient was started on Rocephin and Zithromax ST to evaluate and MBS recommended - see above ABG showing 7. on RA. Probably hyperventilating but RR okay. He does Kussmaul's type breathing pattern that is associated with the audible wheezing. Audible wheezing but more upper airway related possibly from secretions. Doubt PE since on anticoagulation Patient is a nonsmoker and no hx of asthma. BCx NGTD. Abx adjusted to Unasyn given his aspiration risk. Change to Augmentin to complete course. Follow (5) Elevated troponin: Code(s): R79.89 - Other specified abnormal findings of blood chemistry Status: Acute Assessment and Plan: Troponins x3 is minimally elevated but flat. [place] related to CHF and not acute coronary disease. Echo as above. Continue to monitor (6) Atrial fibrillation: Code(s): I48.91 - Unspecified atrial fibrillation Status: Acute Assessment and Plan: Patient with chronic AFib with controlled rate. Eliquis on hold due to fall (7) LBBB (left bundle branch block): Code(s): I44.7 - Left bundle-
--- NOTE | 2023-06-18 18:21 | PC.NURSE ---
Telephone report received from VIRGINIA Woodson RN.
[2023-06-19] VITALS (7 sets, daily range): BP systolic 130–133; BP diastolic 91–95; PULSE 90–102; RESP 20–21; TEMP 35.7–36; O2SAT 94–100
[2023-06-19] MEDS: IPRATROPIUM BR 0.02% INH SOLN 0.5 MG/2.5 ML VIAL INHALATION ×3 (02:59→15:11)
[2023-06-19] MEDS: ALBUTEROL SULFATE NEB 2.5 MG/3 ML INH INHALATION ×3 (02:59→15:11)
[2023-06-19] MEDS: MORPHINE SULFATE (*CRX) 2 MG/ML INJ 1 MG IV PUSH ×2 (10:20→12:19)
--- NOTE | 2023-06-19 13:29 | PM.DS ---
DS: Admitting Diagnosis Discharge Date 06/19/23 Admitting Diagnosis Shortness of breath DS: Discharge Diagnosis Discharge Diagnosis (1) Dysphagia: Code(s): R13.10 - Dysphagia, unspecified Status: Acute (2) Fall: Code(s): W19.XXXA - Unspecified fall, initial encounter Status: Acute (3) Congestive heart failure: Qualifiers: Heart failure chronicity: acute Heart failure type: unspecified Qualified Code(s): I50.9 - Heart failure, unspecified Code(s): I50.9 - Heart failure, unspecified Status: Acute (4) Pneumonia: Code(s): J18.9 - Pneumonia, unspecified organism Status: Acute (5) Elevated troponin: Code(s): R79.89 - Other specified abnormal findings of blood chemistry Status: Acute (6) Atrial fibrillation: Code(s): I48.91 - Unspecified atrial fibrillation Status: Acute (7) LBBB (left bundle branch block): Code(s): I44.7 - Left bundle-branch block, unspecified Status: Acute (8) Dementia: Code(s): F03.90 - Unspecified dementia, unspecified severity, without behavioral disturbance, psychotic disturbance, mood disturbance, and anxiety Status: Acute DS: Summary Hospital Course Reason for hospitalization: 82yo male with dementia, AFib and CHF here for shortness of breath. Please see H&P for details Hospital Course: Patient presents with SOB and found to have BNP of 9000 and CXR showing pulmonary edema. He was started on IV Lasix with good UOP and negative fluid balance. Pedal edema has resolved. Echo showing EF 40-45%, septal wall motion abnormalities related to BBB, reduced RV systolic function, biatrial enlargement, moderate to severe (MEENU 0.8cm2) and moderate MR. Dhiraj patient with acute systolic CHF. Called to the room by nurse on 06/15 in the evening. Patient had fallen out of bed and sustained a head injury. Patient was alert but confused which is his baseline. Vital signs were stable. He was noted to have a pulsatile mass right popliteal fossa. 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 CT C-spine and facial CT?showing no fracture but severe cervical spondylosis. He also had pulmonary edema and moderate sized pleural effusions. XR pelvic and hips negative for fracture. US ordered for the possible leg aneurysm but cancelled when family decided to move to comfort care. Rib xray 06/16 given patient's complaints showed possibly nondisplaced anterolateral fracture left 7th rib Patient was having dysphagia. A Modified barium swallow shows that material enters the airway below the vocal cords without effort to eject.?Has a very sluggish swallow reflex with reduced laryngeal elevation.? Patient made NPO.? Started on low-dose maintenance fluids. Oral medications held. Changed abx to Unasyn. Discussed with family about feeding tube vs hospice/comfort care. After discussing options among themselves, the family decided not to proceed with GTube. Family state that in the past, the patient himself wished not to be kept alive with tubes. Speech therapy provided a diet to minimize aspiration risk. Family was aware that the patient's condition probably will worsen and hospice recommended. They voice understanding of this and have decided to move to hospice care. Patient was able to be discharged back to his facility under hospice care. Status at Discharge Cognitive/behavioral status at discharge: stable Time Spent with Patient Time attestation: Total time spent providing and/or coordinating discharge services: 36 minutes Time spent: Greater than 30 minutes Exam Narrative: AF 96.8 133/91 91 20 94% 2L Gen - NARD HEENT - resolving right facial bruising noted Chest - coarse BS anteriorly. left chest wall tenderness with small amount of bruising CV - irregularly irregular Abd - Soft, NT/ND, Positive BS Ext - right lower extremitiy pedal edema Neuro - awake and alert. confused Psych - calm and cooperative S
== END 2023-06-19 16:00 | disposition hospice, inpatient (51) | DRG 177 ==
LOC: ANHED 19:48 → ANHIMU 06-14 00:04 → ANH3MEDSUR 06-18 19:01
PROVIDERS: Student in an Organized Health Care Education/Training Program; Admitting Provider Internal Medicine; Emergency Provider Physician Assistant; PCP Internal Medicine; Visit Provider Internal Medicine
DX: J69.0 Pneumonitis due to inhalation of food and vomit (principal); I50.21 Acute systolic (congestive) heart failure; S22.32XA Fracture of one rib, left side, initial encounter for closed fracture; I44.7 Left bundle-branch block, unspecified; S00.83XA Contusion of other part of head, initial encounter; S00.531A Contusion of lip, initial encounter; S80.02XA Contusion of left knee, initial encounter; S80.01XA Contusion of right knee, initial encounter; W06.XXXA Fall from bed, initial encounter; G30.9 Alzheimer's disease, unspecified; F02.80 Dementia in other diseases classified elsewhere, unspecified severity, without behavioral disturbance, psychotic disturbance, mood disturbance, and anxiety; Z51.5 Encounter for palliative care; Z79.01 Long term (current) use of anticoagulants
CPT/HCPCS: 36415; 36600; 70450; 70486; 71045; 71046; 71100; 72125; 73521; 80048; 80053; 80069; 82805; 83735; 83880; 84484; 85025; 87040; 87636; 92526; 92610; 92611; 93005; 93306; 94640; 96365; 96366; 96368; 96372; 96374; 96375; 96376; 97161; 97165; 99285; A9270; G0378; J0295; J0456; J0696; J1200; J1630; J1940; J2060; J2270; J2359; J3480